=== PATIENT | male | born 1990 | race Caucasian/White ===

== ENCOUNTER 2018-10-04 08:57 | Emergency (ER) | payer OTHER ==
[~2018-10-04] VITALS: Ht 170.2 cm; Wt 95.7 kg
[2018-10-04 08:58] VITALS: BP 135/76
[2018-10-04] MEDS ORDERED: LIDOCAINE 2% MDV 20 ML VIAL SC ONE (10:00)
[2018-10-04] MEDS ORDERED: NEOSPORIN OINT 0.9 GM PKT (FLOOR STOCK) TOP ONE (10:45)
== END 2018-10-04 10:50 | disposition home or self-care (01) ==
LOC: M ED 08:57
DX: S61.511A Laceration without foreign body of right wrist, initial encounter (principal); W26.8XXA Contact with other sharp object(s), not elsewhere classified, initial encounter; Y92.138 Other place on military base as the place of occurrence of the external cause; Y99.1 Military activity; Z87.81 Personal history of (healed) traumatic fracture; F17.220 Nicotine dependence, chewing tobacco, uncomplicated